=== PATIENT | female | born 1975 | race Caucasian/White ===

== ENCOUNTER 2024-04-25 17:23 | Emergency (ER) | payer OTHER, SELFPAY ==
[2024-04-25 17:25] VITALS: BP 133/88
[2024-04-25 17:46] LABS: % Basophils 0.8 % (0-2); % Immature Granulocytes 0.3 % (0-0.5); % Lymphocytes 31.2 % (20.5-51.1); % Monocytes 7.2 % (1.7-9.3); % Neutrophils 58.5 % (42.2-75.2); Absolute Basophils 0.1 10^3/uL (0-0.2); Absolute Eosinophils 0.1 10^3/uL (0-0.7); Absolute Monocytes 0.5 10^3/uL (0.1-0.6); Absolute Neutrophils 3.8 10^3/uL (1.4-6.5); Hematocrit 41.2 % (37.0-47.0); Hemoglobin 13.9 g/dL (12.0-16.0); Mean Corp Hgb Conc. 33.7 g/dL (33.0-37.0); Mean Corpuscular Hgb 29.2 pg (27.0-31.0); Mean Corpuscular Volume 86.6 fL (81.0-99.0); Mean Platelet Volume 9.1 fL (7.4-10.4); Nucleated Red Blood Cells % 0 %; Platelet Count 253 10^3/uL (130-400); Red Blood Cell Count 4.76 10^6/uL (4.20-5.40); Red Cell Dist. Width 12.7 % (11.5-14.5); White Blood Cell Count 6.5 10^3/uL (4.8-10.8)
[2024-04-25 18:09] LABS: ALT (SGPT) 22 U/L (0-35); AST (SGOT) 26 U/L (14-36); Albumin 4.7 g/dl (3.5-5.0); Alkaline Phosphatase 102 U/L (38-126); Blood Urea Nitrogen 23 mg/dl (7-17); Calcium 9.6 mg/dl (8.4-10.2); Carbon Dioxide 28 mmol/L (22-30); Chloride 101 mmol/L (98-107); Glucose 120 mg/dl (70-99); Potassium 3.8 mmol/L (3.5-5.1); Sodium 137 mmol/L (135-145); Total Bilirubin 0.6 mg/dl (0.2-1.3); Total Protein 7.5 g/dl (6.3-8.2); eGFR > 60.00
[2024-04-25 18:10] LABS: Troponin I < 0.012 ng/ml
[2024-04-25 21:12] VITALS: BMI 24.5
[2024-04-25 21:16] VITALS: BP 131/93
[2024-04-25 22:00] VITALS: BP 122/89
[2024-04-25 22:07] LABS: Troponin I < 0.012 ng/ml
--- NOTE | 2024-04-25 22:08 | ED.GENMED ---
History of Present Illness
General
Chief Complaint: Chest Problem
Time Seen by Provider: 04/25/24 21:13
History of Present Illness
History of Present Illness:
48-year-old female without significant past medical history presenting for chest tightness. Patient reports symptoms occurred on Saturday, about 6 days ago. Symptoms went away, however again returned yesterday and had an episode today as well.
Notes that symptoms radiate up to her throat into her arms. Denies exertional component. Denies any history of known heart disease. Does report some family history of heart problems. Denies difficulty breathing. Denies recent fever or illness.
Denies history of blood clot, recent surgery or travel. Denies difficulty breathing. Denies known association with food. Denies additional acute medical complaints
Phy Exam
Physical Exam
Physical Exam:
General: Well-appearing, no clinical signs of dehydration, nontoxic and in no acute distress
HEENT: protecting airway
Neck: appears supple
CV: Normal heart rate, regular rhythm
Resp: No accessory muscle use, no increased work of breathing, lungs clear to auscultation bilaterally
Abd: Soft and non-distended, no tenderness to palpation
Extremities: No deformities, no swelling
Neuro: alert, no focal neurologic deficit
: deferred
Rectal: deferred
Psych: Normal affect
Skin: Intact
Scores
Heart Score for Chest Pain Patients
STEMI patient?: No
History: Slightly or Non-Suspicious
ECG: Normal
Age: >45 - <65 years
Risk Factors: 1 or 2 Risk Factors
Troponin: </= Normal Limit
Heart Score for Chest Pain Patients: 2
Heart Score Risk: 2.5% MACE over next 6 weeks
Course
Orders/Labs/Results
Orders:
Orders
04/25/24 17:25
Electrocardiogram (*1) Urgent
Reason for Study: Chest Pain
EKG- Treatment ONCE
04/25/24 17:38
Complete Blood Count/With Diff Urgent
Comprehensive Metabolic Panel Urgent
Troponin I Urgent
04/25/24 21:36
Troponin I Urgent
04/25/24 21:53
Electrocardiogram (*1) Urgent
Reason for Study: Chest Pain
EKG- Treatment ONCE
Abnormal Lab Results
04/25/24
17:38
BUN 23 H mg/dl
(7-17)
Glucose 120 H mg/dl
(70-99)
04/25/24 17:38
04/25/24 17:38
Vital Signs
Initial and Last Documented VS:
Initial Vital Signs
Temp Pulse Resp BP Pulse Ox
98.0 F 74 16 133/88 100
04/25/24 17:25 04/25/24 17:25 04/25/24 17:25 04/25/24 17:25 04/25/24 17:25
Last Documented Vital Signs
Temp Pulse Resp BP Pulse Ox
98.4 F 71 21 122/89 99
04/25/24 21:16 04/25/24 22:15 04/25/24 22:15 04/25/24 22:00 04/25/24 22:15
MDM/Problems Addressed
MDM/Problems Addressed:
48-year-old female without significant past medical history presenting for chest tightness. Vital signs are normal.
On exam patient is well-appearing, resting comfortably, no acute distress or discomfort. EKG obtained on arrival, nonischemic. Patient with minimal cardiac risk factors, overall low suspicion for ACS. Given age, patient had laboratory analysis
including troponin, undetectable. Patient low risk by heart score. Again at this time low suspicion for ACS. Do suspect possible indigestion component, notes pain radiating up to her throat. She does note that pain sometimes goes to her back.
Blood pressure within normal limits without concern for aortic catastrophe. PERC negative without concern for PE. Will plan for repeat troponin and EKG given duration of symptoms.
22:20 - Repeat troponin is undetectable and repeat EKG is unchanged. Again at this time low suspicion for ACS. However given age and family history of cardiac issues, advising outpatient cardiology follow-up for potential stress testing at
discretion of security vehicle patrol officer. Return precautions discussed and patient verbalized understanding
*EKG
Interpreted by ED Provider?: Yes
EKG Intrepretation Date: 04/25/24
EKG Intrepretation Time: 22:08
Interpretation: normal
Comparison EKG: no changes (12/24/22)
Heart Rate: 73
Rate: normal
Rhythm: sinus
Folcroft: normal axis
Interval: normal interval
QRS Pattern: normal QRS
Ischemia: no ischemia
*Critical Care Note
Total Time (30-74mins, 75-104mins- exclusive of procedures): Not Applicable
ED Attending Note
-
Portions of this chart may have been created with voice recognition software.� Occasional wrong word or��sound alike� substitutions may have occurred due to the inherent limitations of voice recognition software.
Discharge Plan
Interventions
Interventions:
*Risk Screen - Suicide Last Done: 04/25/24 17:25
*General Assessment Last Done: 04/25/24 21:13
*Neglect/Abuse Screening Last Done: 04/25/24 17:25
*ED COVID-19 Vaccine History Last Done: 04/25/24 17:25
ED- Cardiac Assessment Last Done: 04/25/24 21:18
ED- Pulmonary Assessment Last Done: 04/25/24 21:18
Discharge Date and Time
Print Language: MALTESE
== END 2024-04-25 22:46 | disposition home or self-care (01) ==
LOC: EMR 17:23
PROVIDERS: Emergency Medicine; EMERGENCY PHYSICIAN Student in an Organized Health Care Education/Training Program
DX: R07.89 Other chest pain (principal)
CPT/HCPCS: 99284; 80053; 84484; 85025; 93005

== ENCOUNTER 2024-07-26 12:44 | Emergency (ER) | payer OTHER, SELFPAY ==
[2024-07-26 12:49] VITALS: BP 129/95
[2024-07-26 13:05] LABS: % Basophils 0.5 % (0-2); % Eosinophils 2.6 % (0-6); % Immature Granulocytes 0.3 % (0-0.5); % Neutrophils 57.6 % (42.2-75.2); Absolute Eosinophils 0.2 10^3/uL (0-0.7); Absolute Lymphocytes 1.8 10^3/uL (1.2-3.4); Absolute Monocytes 0.5 10^3/uL (0.1-0.6); Absolute Neutrophils 3.3 10^3/uL (1.4-6.5); Hemoglobin 13.5 g/dL (12.0-16.0); Mean Corp Hgb Conc. 34.6 g/dL (33.0-37.0); Mean Corpuscular Hgb 29.4 pg (27.0-31.0); Mean Platelet Volume 9.3 fL (7.4-10.4); Nucleated Red Blood Cells % 0 %; Platelet Count 224 10^3/uL (130-400); Red Blood Cell Count 4.59 10^6/uL (4.20-5.40); Red Cell Dist. Width 12.4 % (11.5-14.5); White Blood Cell Count 5.8 10^3/uL (4.8-10.8)
[2024-07-26 13:28] LABS: ALT (SGPT) 16 U/L (0-35); AST (SGOT) 23 U/L (14-36); Albumin 4.4 g/dl (3.5-5.0); Alkaline Phosphatase 95 U/L (38-126); Blood Urea Nitrogen 25 mg/dl (7-17); Calcium 9.1 mg/dl (8.4-10.2); Carbon Dioxide 26 mmol/L (22-30); Chloride 109 mmol/L (98-107); Glucose 88 mg/dl (70-99); Potassium 4.3 mmol/L (3.5-5.1); Sodium 142 mmol/L (135-145); Total Bilirubin 0.6 mg/dl (0.2-1.3); Total Protein 7.3 g/dl (6.3-8.2); eGFR > 60.00
[2024-07-26 14:00] VITALS: BP 117/77
[2024-07-26 15:21] VITALS: BMI 23.4
--- NOTE | 2024-07-26 15:22 | ED.GENMED ---
History of Present Illness
General
Chief Complaint: Headache
Source: patient
Exam Limitations: none
Time Seen by Provider: 07/26/24 14:40
Nursing documentation reviewed up to this point in time: agreed with
History of Present Illness
History of Present Illness:
49-year-old female long history of migraines and sees several neurologist currently on Maxalt which took the last few days without much relief none today she had a televisit with her provider who suggested Tylenol which worked to some degree pain is
behind her left eye with photophobia and nausea no fevers no rash no insect bites, she is perimenopausal, previously got headaches with her cycle, also she is cut out alcohol and caffeine from her diet still getting some headaches she is unclear of
the trigger
Review of Systems
Review of Systems
All Other Systems: Not applicable
Constitutional: Denies fever or fatigue
EENT: Reports no symptoms
Respiratory: Reports no symptoms
Cardiac: Denies chest pain
ABD/GI: Reports nausea
: Reports no symptoms
Neurological: Reports headache
Phy Exam
Physical Exam
Physical Exam:
Physical Exam
General: 49 female nontoxic looks uncomfortable positive photophobia
Neck: No pain with flexion of the neck
Heart: s1/s2 regular rate and rhythm, no murmur. equal radial pulses.
Lungs: no acute respiratory distress. clear bilaterally
Abdomen: Nontender
Neuro: alert and oriented. no focal neurological deficits
Skin: no rash
Psychiatric: well kept. interactive and cooperative
Extremities: no edema. no calf tenderness.
Course
Orders/Labs/Results
Orders:
Orders
07/26/24 12:56
CMP [Comprehensive Metabolic Panel] Urgent
Complete Blood Count/With Diff Urgent
07/26/24 15:03
0.9% Sodium Chloride 1000 ml [Nss] 1,500 ml IV BOLUS
Diphenhydramine [Benadryl] 25 mg IV NOW STA
Ketorolac [Toradol] 30 mg IV NOW STA
Metoclopramide [Reglan] 10 mg IV NOW STA
07/26/24 15:42
CT Head W/o Iv Contrast Urgent
Comment:
Reason For Exam: headache
Abnormal Lab Results
07/26/24
12:56
Chloride 109 H mmol/L
(98-107)
BUN 25 H mg/dl
(7-17)
07/26/24 12:56
07/26/24 12:56
Vital Signs
Initial and Last Documented VS:
Initial Vital Signs
Temp Pulse Resp BP Pulse Ox
98.6 F 73 20 129/95 99
07/26/24 12:49 07/26/24 12:49 07/26/24 12:49 07/26/24 12:49 07/26/24 12:49
Last Documented Vital Signs
Temp Pulse Resp BP Pulse Ox
98.6 F 73 20 129/95 99
07/26/24 12:49 07/26/24 12:49 07/26/24 12:49 07/26/24 12:49 07/26/24 12:49
MDM/Problems Addressed
Differential Diagnosis Includes:
Migraine tension cluster doubt [employer] infection or intracerebral hemorrhage
MDM/Problems Addressed:
Headache
Chronic conditions affecting care: Neurological disorder
Acute Exacerbation and/or Progression of Chronic Illness: Neurological disorder
*Radiology
Radiology exam reviewed: radiology read reviewed
*Pulse Oximetry
Patient hypoxic: no
*Critical Care Note
Total Time (30-74mins, 75-104mins- exclusive of procedures): Not Applicable
Update Note
Update Note:
Update CT requested by patient
CT report reviewed
5 PM patient feeling better resting comfortably
ED Attending Note
-
Portions of this chart may have been created with voice recognition software.� Occasional wrong word or��sound alike� substitutions may have occurred due to the inherent limitations of voice recognition software.
Discharge Plan
Departure
Patient Disposition: Home (Routine Discharge)
Date of Disposition: 07/26/24
Time of Disposition: 16:57
Patient with high blood pressure during this ER visit?: No
Condition: Good
Discharge Problem:
Headache
Instructions: Migraines (DC), BLOOD PRESSURE
Prescriptions:
New
naproxen [Naprosyn] 500 mg tablet
500 mg PO BID PRN (Reason: Pain) Qty: 30 2RF
metoclopramide HCl [Reglan] 10 mg tablet
10 mg PO Q8HPRN PRN (Reason: nausea and vomiting) Qty: 20 2RF
Referrals:
[facility] DONALDS[facility] [Other] - Follow up in 5-7 days
Stand Alone Forms: Return to Work
Interventions
Interventions:
*Risk Screen - Suicide Last Done: 07/26/24 12:49
*General Assessment Last Done: 07/26/24 12:49
*Neglect/Abuse Screening Last Done: 07/26/24 12:49
*ED- Fall Risk Assessment Last Done: 07/26/24 12:49
*ED COVID-19 Vaccine History Last Done: 07/26/24 12:49
ED- Neurological Assessment Last Done: 07/26/24 15:21
Discharge Date and Time
Print Language: HEBREW
[2024-07-26] MEDS: TORADOL 30 MG IV (15:29)
[2024-07-26] MEDS: REGLAN 10 MG IV (15:30)
[2024-07-26] MEDS: NSS 1500 IV (15:30)
[2024-07-26] MEDS: BENADRYL 25 MG IV (15:30)
[2024-07-26 16:00] VITALS: BP 124/68
== END 2024-07-26 17:25 | disposition home or self-care (01) ==
LOC: EMR 12:44
PROVIDERS: Emergency Medicine; EMERGENCY PHYSICIAN Emergency Medicine
DX: R51.9 Headache, unspecified (principal); R11.0 Nausea
CPT/HCPCS: 96374; 96375; 96361; 99284; 70450; 80053; 85025